=== PATIENT | male | born 1970 | race Caucasian/White ===

== ENCOUNTER 2023-06-13 06:17 | Day surgery (SDC) | payer OTHER, SELFPAY ==
[2023-05-31 08:39] VITALS: BMI 31.9
--- NOTE | 2023-05-31 14:19 | PTCARENOTE ---
reviewed preop ECG from 05/31/23; no actions requested.
[2023-06-13] VITALS (8 sets, daily range): BP systolic 128–146; BP diastolic 69–93; BMI 31.9
[2023-06-13] MEDS: TYLENOL 1000 MG PO (08:10)
[2023-06-13] MEDS: CELEBREX 200 MG PO (08:10)
[2023-06-13] MEDS: NORMOSOL-R 1000 IV (08:10)
[2023-06-13] MEDS: ROXICODONE 5 MG PO (11:11)
== END 2023-06-13 11:43 | disposition home or self-care (01) ==
LOC: SDS 06:17
PROVIDERS: ATTENDING PHYSICIAN Orthopaedic Surgery; FAMILY PHYSICIAN Family Medicine
DX: S83.232A Complex tear of medial meniscus, current injury, left knee, initial encounter (principal); X58.XXXA Exposure to other specified factors, initial encounter
CPT/HCPCS: 29881; 36415; 87070; 93005

== ENCOUNTER 2024-03-04 09:05 | Emergency (ER) | payer OTHER, SELFPAY ==
[2024-03-04 09:08] VITALS: BP 137/88
--- NOTE | 2024-03-04 09:22 | ED.GENMED ---
History of Present Illness
General
Chief Complaint: Fainting Sensation
Time Seen by Provider: 03/04/24 09:20
History of Present Illness
History of Present Illness:
TIME OF INITIAL ENCOUNTER: 9:25 AM
HPI: The patient woke up around 5 AM, had some breakfast, had a normal bowel movement a little after 7 AM, and a few minutes later suddenly had a sensation that he was going to pass out and was diaphoretic. This was associated with some nausea. He
went to urgent care where he had some monitoring/EKG which was unremarkable was encouraged to come to the emergency department for further evaluation.
EXAM:
GENERAL: Well appearing in no distress, very healthy in appearance, athletic build
HEENT: Moist oral mucosa
CARDIOVASCULAR: No murmurs, normal heart rate, regular rhythm, No chest wall tenderness
PULMONARY: No respiratory distress, breath sounds are clear and equal
ABDOMEN: Soft with no peritoneal signs, no tenderness
NEUROLOGIC: Excellent strength all extremities, no coordination deficits
PSYCHIATRIC: Appropriate mental status, normal insight and judgement
EXTREMITIES: Nontender, no edema, moves all extremities equally
SKIN: No rash, no lesions
NUMBER AND COMPLEXITY OF PROBLEMS ADDRESSED AT THE ENCOUNTER
� Chronic conditions affecting care: High blood pressure
� Acute Exacerbation and/or Progression of Chronic Illness: This is an acute problem
� Differential Diagnosis includes: Dysrhythmia, anxiety, hypoglycemia, vasovagal response
AMOUNT AND/OR COMPLEXITY OF DATA TO BE REVIEWED AND ANALYZED
� I performed an independent evaluation of and my interpretation is:
EKG: Sinus 62, no acute ST abnormality
CT:
X-rays:
Laboratory Studies: CBC normal, chemistries unremarkable, PSA obtained at patient's request as he has been having some urinary hesitancy which was normal, troponin negative, urinalysis unremarkable
Other:
� Review of other/old records: I reviewed records, the patient had a Holter monitor 2021 which was relatively unremarkable
� Clinical information was obtained by an independent historian: I spoke to the at bedside
� Prescriptions/Medications Considered but not given:
� Further testing considered but not performed:
RISK OF COMPLICATIONS AND/OR MORBIDITY OR MORTALITY OF PATIENT MANAGEMENT
� Social determinants of health affecting care: Lives at home
� Discussion with other providers:
� Escalation of care including admission/observation vs risk of discharge considered: Labs, monitoring, vital signs, EKG unremarkable�no clear indication for admission to the hospital
ANY OTHER UPDATES:
12 PM: I reassessed�there has been no further episodes while in the ED. He does report some urinary hesitancy but urinalysis shows no blood or signs of infection. His postvoid residual was only 40 mL. He remained sinus on the monitor. Unclear
etiology of patient's earlier event.
Phy Exam
Physical Exam
Physical Exam:
See HPI
Course
Orders/Labs/Results
Orders:
Orders
03/04/24 09:07
ECG [Electrocardiogram (*1)] Urgent
Reason for Study: Syncope
EKG- Treatment ONCE
03/04/24 10:22
Basic Metabolic Panel Urgent
Complete Blood Count/With Diff Urgent
Magnesium Urgent
PSA, Total - Diagnostic Urgent
Comment: ADD ON
Troponin I Urgent
03/04/24 10:25
Add On- LAB Urgent
Tests Added?: PSA
03/04/24 11:34
Urinalysis Urgent
Date Specimen was Collected: 03/04/24
Time Specimen was Collected: 11:28
Abnormal Lab Results
03/04/24
10:22
Plt Count 115 L 10^3/uL
(130-400)
Absolute Lymphs (auto) 1.0 L 10^3/uL
(1.2-3.4)
Lymphocytes % 17.5 L %
(20.5-51.1)
Potassium 5.3 H mmol/L
(3.5-5.1)
Glucose 107 H mg/dl
(70-99)
03/04/24 10:22
03/04/24 10:22
Vital Signs
Initial and Last Documented VS:
Initial Vital Signs
Temp Pulse Resp BP Pulse Ox
98.1 F 70 18 137/88 99
03/04/24 09:08 03/04/24 09:08 03/04/24 09:08 03/04/24 09:08 03/04/24 09:08
Last Documented Vital Signs
Temp Pulse Resp BP Pulse Ox
98.1 F 69 18 127/81 99
03/04/24 09:08 03/04/24 10:24 03/04/24 10:24 03/04/24 10:24 03/04/24 10:24
*Critical Care Note
Total Time (30-74mins, 75-104mins- exclusive of procedures): Not Applicable
ED Attending Note
-
Portions of this chart may have been created with voice recognition software.� Occasional wrong word or��sound alike� substitutions may have occurred due to the inherent limitations of voice recognition software.
Discharge Plan
Departure
Prescriptions:
No Action
lisinopril 20 MG tablet
20 mg PO DAILY
Referrals:
Rafael De La Rosa, [Family Provider] -
Interventions
Interventions:
*Risk Screen - Suicide Last Done: 03/04/24 09:09
*General Assessment Last Done: 03/04/24 09:09
*Neglect/Abuse Screening Last Done: 03/04/24 09:09
*ED COVID-19 Vaccine History Last Done: 03/04/24 10:30
ED- Cardiac Assessment Last Done: 03/04/24 10:32
ED- Neurological Assessment Last Done: 03/04/24 10:30
Discharge Date and Time
Print Language: KOREAN
[2024-03-04 10:00] VITALS: BP 127/81
[2024-03-04 10:16] VITALS: BMI 26.1
[2024-03-04 10:24] VITALS: BP 127/81
[2024-03-04 11:01] LABS: Blood Urea Nitrogen 18 mg/dl (9-20); Calcium 9.9 mg/dl (8.4-10.2); Carbon Dioxide 27 mmol/L (22-30); Chloride 103 mmol/L (98-107); Estimated Creatinine Clearance > 125 ml/min; Glucose 107 mg/dl (70-99); Magnesium 2.1 mg/dl (1.6-2.3); Potassium 5.3 mmol/L (3.5-5.1); Sodium 140 mmol/L (135-145); eGFR > 60.00
[2024-03-04 11:02] LABS: Troponin I < 0.012 ng/ml
[2024-03-04 11:13] LABS: % Basophils 0.3 % (0-2); % Eosinophils 0.3 % (0-6); % Immature Granulocytes 0.2 % (0-0.5); % Lymphocytes 17.5 % (20.5-51.1); % Monocytes 8.2 % (1.7-9.3); % Neutrophils 73.5 % (42.2-75.2); Absolute Monocytes 0.5 10^3/uL (0.1-0.6); Absolute Neutrophils 4.2 10^3/uL (1.4-6.5); Hematocrit 45.9 % (39.0-52.0); Hemoglobin 15.7 g/dL (13.0-18.0); Mean Corp Hgb Conc. 34.2 g/dL (33.0-37.0); Mean Corpuscular Hgb 30.7 pg (27.0-31.0); Mean Corpuscular Volume 89.8 fL (80.0-94.0); Nucleated Red Blood Cells % 0 % (-); Red Blood Cell Count 5.11 10^6/uL (4.70-6.10); Red Cell Dist. Width 12.6 % (11.5-14.5); White Blood Cell Count 5.8 10^3/uL (4.8-10.8)
[2024-03-04 11:29] LABS: PSA, Total - Diagnostic 0.81 ng/ml (0.0-4.0)
[2024-03-04 11:47] LABS: Urine Albumin Negative (Neg - Trace); Urine Bilirubin Negative (Negative); Urine Character Clear (Clear); Urine Color Yellow; Urine Glucose Negative (Negative); Urine Ketone Negative (Negative); Urine Leukocyte Negative (Negative); Urine Nitrite Negative (Negative); Urine Occult Blood Negative (Negative); Urine Urobilinogen Negative (Neg - 1+)
[2024-03-04 11:49] LABS: Platelet Count 115 10^3/uL (130-400)
[2024-03-04 12:36] VITALS: BP 130/83
== END 2024-03-04 12:38 | disposition home or self-care (01) ==
LOC: EMR 09:05
PROVIDERS: EMERGENCY PHYSICIAN Emergency Medicine; FAMILY PHYSICIAN Family Medicine
DX: R55 Syncope and collapse (principal); R35.0 Frequency of micturition
CPT/HCPCS: 99284; 80048; 81003; 83735; 84153; 84484; 85025; 93005

== ENCOUNTER 2024-03-05 07:34 | Emergency (ER) | payer OTHER, SELFPAY ==
[2024-03-05 07:38] VITALS: BP 142/93
--- NOTE | 2024-03-05 07:48 | ED.GENMED ---
History of Present Illness
General
Chief Complaint: Abdominal Pain
Time Seen by Provider: 03/05/24 07:40
History of Present Illness
History of Present Illness:
53-year-old male presents to the emergency department for evaluation of acute onset left lower abdominal pain rating to the left testicle, pain woke him up from sleep this morning. Pain seems to wax and wane with intermittent periods of severe
discomfort. Feels dizzy has had vomiting as well. No fevers or chills. No hematuria or dysuria. Was seen in this emergency department yesterday after a near syncopal event and felt fine when he went home.
Review of Systems
Review of Systems
Allergies reviewed?: Yes
All Other Systems: ROS reviewed and negative except as documented in HPI and ROS
Phy Exam
Physical Exam
Physical Exam:
GEN: Visibly in discomfort, pacing about the room
HEENT: Oral mucosa moist, no scleral icterus
Cardiac: Regular rate
Lung: No respiratory distress, no tachypnea
Abdomen: Soft, mild left lower quadrant tenderness, no rigidity
: No obvious testicular or scrotal swelling, mild tenderness to the left hemiscrotum, no palpable inguinal adenopathy
MSK: No gross deformity or injuries
Skin: Good color, no pallor or jaundice, no rashes
Neuro: AO x3, moves all extremities freely
Psych: Calm, cooperative
Course
Orders/Labs/Results
Orders:
Orders
03/05/24 07:47
CT Abd/pel Without Iv Or Oral Urgent
Comment:
Reason For Exam: L ureteral colic
Ketorolac [Toradol] 15 mg IV NOW STA
Ondansetron Injectable [Zofran] 4 mg IV NOW STA
03/05/24 07:54
Complete Blood Count/With Diff Urgent
Comprehensive Metabolic Panel Urgent
03/05/24 08:12
HYDROmorphone [Dilaudid] 0.5 mg .ROUTE .STK-MED ONE
03/05/24 08:15
HYDROmorphone [Dilaudid] 0.5 mg IV NOW STA
03/05/24 08:26
HYDROmorphone [Dilaudid] 0.5 mg IV NOW STA
03/05/24 09:27
Urinalysis Reflex To Culture Urgent
Date Specimen was Collected: 03/05/24
Time Specimen was Collected: 09:26
Urine Microscopic Reflex Cult Urgent
Urine Culture Urgent
VIANCA Source: U
Specimen Description:
Date Specimen was Collected: 03/05/24
Time Specimen was Collected: 09:26
03/05/24 09:42
Morphine Sulfate 4 mg IV NOW STA
Abnormal Lab Results
03/05/24 03/05/24
07:54 09:27
MPV 13.8 H fL
(7.4-10.4)
Absolute Neuts (auto) 6.7 H 10^3/uL
(1.4-6.5)
Lymphocytes % 17.7 L %
(20.5-51.1)
Carbon Dioxide 19 L mmol/L
(22-30)
Glucose 131 H mg/dl
(70-99)
Calcium 10.4 H mg/dl
(8.4-10.2)
Urine Ketones 3+ A
(Negative)
Ur Occult Blood Reflex Trace A
(Negative)
Urine Bilirubin 1+ A
(Negative)
Urine Urobilinogen 2+ A
(Neg - 1+)
Leukocyte Esterase Rfl 1+ A
(Negative)
Urine RBC 11-15 A /HPF
(0-2)
Urine WBC (Reflex) 11-15 A /HPF
(0-5)
03/05/24 07:54
03/05/24 07:54
Vital Signs
Initial and Last Documented VS:
Initial Vital Signs
Temp Pulse Resp BP Pulse Ox
97.8 F 85 16 142/93 98
03/05/24 07:38 03/05/24 07:38 03/05/24 07:38 03/05/24 07:38 03/05/24 07:38
Last Documented Vital Signs
Temp Pulse Resp BP Pulse Ox
97.8 F 70 16 141/73 98
03/05/24 07:38 03/05/24 10:41 03/05/24 10:41 03/05/24 10:41 03/05/24 07:38
MDM/Problems Addressed
MDM/Problems Addressed:
53-year-old male presents with acute onset of left lower quadrant and left testicular pain. He is found to have a small distal ureteral stone. He did require a large amount of analgesics to control his symptoms however ultimately was able to be
discharged home for expectant management. No Indication for admission
*Critical Care Note
Total Time (30-74mins, 75-104mins- exclusive of procedures): Not Applicable
ED Attending Note
-
Portions of this chart may have been created with voice recognition software.� Occasional wrong word or��sound alike� substitutions may have occurred due to the inherent limitations of voice recognition software.
Discharge Plan
Departure
Patient Disposition: Home (Routine Discharge)
Date of Disposition: 03/05/24
Time of Disposition: 10:28
Patient with high blood pressure during this ER visit?: No
Discharge Problem:
Ureterolithiasis
Instructions: Kidney Stones (DC)
Prescriptions:
New
morphine 15 mg tablet
15 mg PO Q8H PRN (Reason: Pain) Qty: 8 0RF
ketorolac 10 mg tablet
10 mg PO Q6H PRN (Reason: Pain) Qty: 15 0RF
Rx Instructions:
maximum total duration of 5 days from all oral, intranasal, or parenteral formulations
ondansetron 4 mg tablet,disintegrating
4 mg PO TIDPRN PRN (Reason: nausea/vomiting) Qty: 10 0RF
No Action
lisinopril 20 MG tablet
20 mg PO DAILY
Referrals:
Rafael De La Rosa, DO [Family Provider] -
Activity Restrictions/Additional Instructions:
Return if you develop a fever or uncontrolled pain
Interventions
Interventions:
*Risk Screen - Suicide Last Done: 03/05/24 07:38
*Neglect/Abuse Screening Last Done: 03/05/24 07:38
ED- Fall Risk Assessment Last Done: 03/05/24 09:02
*ED COVID-19 Vaccine History Last Done: 03/05/24 07:45
*Nursing Disposition Last Done: 03/05/24 11:12
HW-Wcizuo-[id number] Assessment Last Done: 03/05/24 07:56
Discharge Date and Time
Discharge Date/Time: 03/05/24 11:24
Print Language: LATVIAN
[2024-03-05] MEDS: TORADOL 15 MG IV (07:59)
[2024-03-05] MEDS: ZOFRAN 4 MG IV (07:59)
[2024-03-05 08:12] LABS: % Basophils 0.2 % (0-2); % Eosinophils 0.2 % (0-6); % Immature Granulocytes 0.3 % (0-0.5); % Lymphocytes 17.7 % (20.5-51.1); % Monocytes 6.8 % (1.7-9.3); % Neutrophils 74.8 % (42.2-75.2); Absolute Lymphocytes 1.6 10^3/uL (1.2-3.4); Absolute Monocytes 0.6 10^3/uL (0.1-0.6); Absolute Neutrophils 6.7 10^3/uL (1.4-6.5); Hematocrit 47.2 % (39.0-52.0); Hemoglobin 16.4 g/dL (13.0-18.0); Mean Corp Hgb Conc. 34.7 g/dL (33.0-37.0); Mean Corpuscular Hgb 30.4 pg (27.0-31.0); Mean Corpuscular Volume 87.6 fL (80.0-94.0); Mean Platelet Volume 13.8 fL (7.4-10.4); Nucleated Red Blood Cells % 0 % (-); Platelet Count 146 10^3/uL (130-400); Red Blood Cell Count 5.39 10^6/uL (4.70-6.10); Red Cell Dist. Width 12.8 % (11.5-14.5); White Blood Cell Count 8.9 10^3/uL (4.8-10.8)
[2024-03-05] MEDS: DILAUDID 0.5 MG IV ×2 (08:15→08:30)
[2024-03-05 08:26] LABS: ALT (SGPT) 21 U/L (0-50); AST (SGOT) 28 U/L (17-59); Alkaline Phosphatase 77 U/L (38-126); Blood Urea Nitrogen 17 mg/dl (9-20); Calcium 10.4 mg/dl (8.4-10.2); Carbon Dioxide 19 mmol/L (22-30); Chloride 104 mmol/L (98-107); Glucose 131 mg/dl (70-99); Potassium 4.3 mmol/L (3.5-5.1); Sodium 140 mmol/L (135-145); Total Protein 7.9 g/dl (6.3-8.2); eGFR > 60.00
[2024-03-05 09:01] VITALS: BP 147/90
[2024-03-05 09:29] VITALS: BP 153/87
[2024-03-05 09:44] LABS: Urine Albumin Trace (Neg - Trace); Urine Bilirubin 1+ (Negative); Urine Character Clear (Clear); Urine Color Yellow; Urine Glucose Negative (Negative); Urine Ketone 3+ (Negative); Urine Leukocyte 1+ (Negative); Urine Nitrite Negative (Negative); Urine Occult Blood Trace (Negative); Urine Specific Gravity 1.015 (<1.030); Urine Urobilinogen 2+ (Neg - 1+)
[2024-03-05] MEDS: MORPHINE SULFATE 4 MG IV (09:48)
[2024-03-05 10:20] LABS: Urine Amorphous Seen; Urine Mucus Many
[2024-03-05 10:41] VITALS: BP 141/73
== END 2024-03-05 11:24 | disposition home or self-care (01) ==
LOC: EMR 07:34
PROVIDERS: Physician Assistant; EMERGENCY PHYSICIAN Emergency Medicine; FAMILY PHYSICIAN Family Medicine
DX: N20.1 Calculus of ureter (principal)
CPT/HCPCS: 99284; 96374; 96375; 96376; 74176; 80053; 81003; 81015; 85025; 87086